=== PATIENT | female | born 1990 | race American Indian/Alaskan Native ===

== ENCOUNTER 2017-04-26 11:35 | Emergency (ER) | payer BC ==
[2017-04-26 11:46] VITALS: BMI 37.4
[2017-04-26 11:47] VITALS: BP 110/62; PULSE 104; RESP 19; TEMP 98.7; O2SAT 99
--- NOTE | 2017-04-26 12:25 | ED PDOC ---
Lower Extremity Pain/Injury Time Seen by Provider: 04/26/17 12:13 Chief Complaint (Nursing): Lower Extremity Problem/Injury Chief Complaint (Provider): fall type injury History Per: Patient History/Exam Limitations: no limitations Onset/Duration Of Symptoms: Hrs Current Symptoms Are (Timing): Still Present Severity: Moderate Additional History Per: Patient Additional Complaint(s): The pt is a 27yo female, presents to ED for evaluation of right hip, knee and ankle injury s/p falling down the stairs last night. Pt denies any head injury or loss of consciousness. Also denies any neck or back pain. Pt denies any significant PMHx, offers no additional medical complaints. - Hip Description Of Injury: Fell - Knee Description Of Injury: Fell - Ankle/Foot Description Of Injury: Fell Past Medical History Reviewed: Historical Data, Nursing Documentation, Vital Signs Vital Signs: Last Vital Signs Temp 98.7 F 04/26/17 11:47 Pulse 104 H 04/26/17 11:47 Resp 19 04/26/17 11:47 BP 110/62 04/26/17 11:47 Pulse Ox 99 04/26/17 11:47 - Medical History PMH: No Chronic Diseases, Migraine - Surgical History Surgical History: No Surg Hx - Family History Family History: States: Unknown Family Hx - Social History Current smoker - smoking cessation education provided: No Alcohol: None Drugs: Denies - Home Medications Home Medications: Ambulatory Orders Medication Instructions Recorded Cyclobenzaprine [Cyclobenzaprine 10 mg PO BID #14 tab 05/15/15 HCl] Ibuprofen [Motrin] 600 mg PO Q8 #30 tab 05/15/15 Ondansetron ODT [Zofran ODT] 8 mg PO Q8 PRN #10 odt 01/11/16 Naproxen [Naprosyn] 500 mg PO Q12H #20 tab 04/26/17 - Allergies Allergies/Adverse Reactions: Allergies Allergy/AdvReac Type Severity Reaction Status Date / Time No Known Allergies Allergy Verified 04/26/17 11:57 Review of Systems ROS Statement: Except As Marked, All Systems Reviewed And Found Negative Musculoskeletal: Positive for: Leg Pain (rt), Foot Pain (rt) Physical Exam - Reviewed Nursing Documentation Reviewed: Yes Vital Signs Reviewed: Yes - Physical Exam Appears: Positive for: Well, Non-toxic, No Acute Distress Head Exam: Positive for: ATRAUMATIC, NORMAL INSPECTION, NORMOCEPHALIC Skin: Positive for: Normal Color, Warm, DRY Eye Exam: Positive for: Normal appearance Cardiovascular/Chest: Positive for: Regular Rate, Rhythm Respiratory: Negative for: Respiratory Distress Back: Positive for: Normal Inspection Extremity: Positive for: Tenderness (right hip tenderness, limited ROM due to pain; right knee tenderness posteriorly, ROM limited due to pain; right ankle no swelling or deformity), Capillary Refill (<2 seconds; distal neurovascular senses intact). Negative for: Deformity, Swelling Neurologic/Psych: Positive for: Alert, Oriented - ECG O2 Sat by Pulse Oximetry: 99 (RA) Pulse Ox Interpretation: Normal Medical Decision Making Medical Decision Making: Time: 1220 Impression: Right hip, knee, ankle injury s/p fall Plan: -- XR Right Ankle -- XR Right Knee -- XR Right Hip -- Toradol 60 mg IM Reassess Scribe Attestation: Documented by Deanne Mckeon acting as a scribe for Roque Stoner MD. Provider Attestation: All medical record entries made by the Scribe were at my direction and personally dictated by me. I have reviewed the chart and agree that the record accurately reflects my personal performance of the history, physical exam, medical decision making, and the department course for this patient. I have also personally directed, reviewed, and agree with the discharge instructions and disposition. Disposition - Clinical Impression Clinical Impression: Knee sprain, Ankle sprain, Contusion - Patient ED Disposition Is Patient to be Admitted: No Counseled Patient/Family Regarding: Studies Performed, Diagnosis, Need For Followup, Rx Given - Disposition Referrals: Kenyatta Frazier [Primary Care Provider] - Josh Giraldo MD [Medical Doctor] - Disposition: Routine/Home Disposition Time: 14:33 Condition: FAIR Prescriptions: Naproxen [Naprosyn] 500 mg PO Q12H #20 tab Instructions: Knee Immobilizer (ED), Knee Sprain (ED), Ankle Sprain (ED), Contusion in Adults (ED)
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
== END 2017-04-26 15:31 | disposition home or self-care (01) ==
LOC: H.ER 11:35
DX: S83.91XA Sprain of unspecified site of right knee, initial encounter (principal); S93.401A Sprain of unspecified ligament of right ankle, initial encounter; M25.551 Pain in right hip; W10.9XXA Fall (on) (from) unspecified stairs and steps, initial encounter; Y92.89 Other specified places as the place of occurrence of the external cause
CPT/HCPCS: 29530; 29540; 73502; 73562; 73600; 81025; 96372; 99285; J1885

== ENCOUNTER 2017-06-15 12:22 | Emergency (ER) | payer BC ==
[2017-06-15 12:22] VITALS: BMI 37.4
[2017-06-15 12:28] VITALS: BP 109/76; RESP 16; TEMP 97.8; O2SAT 99
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
[2017-06-15 15:50] VITALS: PULSE 72
== END 2017-06-15 15:48 | disposition home or self-care (01) ==
LOC: H.ER 12:22
DX: S00.83XA Contusion of other part of head, initial encounter (principal); S16.1XXA Strain of muscle, fascia and tendon at neck level, initial encounter; Y04.0XXA Assault by unarmed brawl or fight, initial encounter; Y92.89 Other specified places as the place of occurrence of the external cause

== ENCOUNTER 2018-01-06 11:46 | Emergency (ER) | payer BC, MEDICAID ==
[2018-01-06 11:46] VITALS: BMI 37.4
[2018-01-06 11:55] VITALS: BP 127/69; PULSE 81; O2SAT 100
[2018-01-06 12:09] VITALS: RESP 20; TEMP 98.2
--- NOTE | 2018-01-06 12:40 | ED PDOC ---
HPI: Eye Injury/Pain Time Seen by Provider: 01/06/18 12:30 Chief Complaint (Nursing): Eye Problem Chief Complaint (Provider): Eye Problem History Per: Patient History/Exam Limitations: no limitations Onset/Duration Of Symptoms: Days (x3) Current Symptoms Are (Timing): Still Present Injury To Eye?: No Wears Contact Lens?: Yes Associated Symptoms: Pain, Discharge From Eye (tearing from eye) Additional Complaint(s): 27 year old female presents to ED with complaints of left eye pain x3 days. Patient describes the pain as a "stinging" sensation and confirms she wears contacts. Patient notes resolved erythema after putting in Clear Eye drops. (-) visual changes. Notes she changed her contacts 2 days ago. PCP: Wilver Payne Past Medical History Reviewed: Historical Data, Nursing Documentation, Vital Signs Vital Signs: Last Vital Signs Temp 98.2 F 01/06/18 12:05 Pulse 81 01/06/18 12:05 Resp 20 01/06/18 12:05 BP 127/69 01/06/18 12:05 Pulse Ox 100 01/06/18 12:05 - Medical History PMH: Migraine - Family History Family History: States: Unknown Family Hx - Social History Alcohol: None Drugs: Denies - Home Medications Home Medications: Ambulatory Orders Medication Instructions Recorded Cyclobenzaprine [Cyclobenzaprine 10 mg PO BID #14 tab 05/15/15 HCl] Ibuprofen [Motrin] 600 mg PO Q8 #30 tab 05/15/15 Ondansetron ODT [Zofran ODT] 8 mg PO Q8 PRN #10 odt 01/11/16 Naproxen [Naprosyn] 500 mg PO Q12H #20 tab 04/26/17 Ofloxacin Ophth 0.3% [Ocuflox 4 unit OS Q6 5 Days #1 bottle 01/06/18 Ophth 0.3%] - Allergies Allergies/Adverse Reactions: Allergies Allergy/AdvReac Type Severity Reaction Status Date / Time No Known Allergies Allergy Verified 01/06/18 12:05 Review of Systems ROS Statement: Except As Marked, All Systems Reviewed And Found Negative Constitutional: Positive for: Sweats (pain to left eye) Eyes: Positive for: Pain, Redness (resolved in left eye). Negative for: Vision Change Physical Exam - Reviewed Nursing Documentation Reviewed: Yes Vital Signs Reviewed: Yes - Physical Exam Appears: Positive for: Non-toxic, No Acute Distress Eye Exam: Positive for: EOMI, PERRL, Conjunctival injection (very mild injection ), Other (Fluorescein stain shows: lens is cloudy. Uptake in a circumferential manner around iris. No abrasions.) - ECG O2 Sat by Pulse Oximetry: 100 (RA) Pulse Ox Interpretation: Normal Medical Decision Making Medical Decision Makin Initial impression: bacterial conjunctivitis, most probably Pseudomonas - related to contact lens wearer Will prescribe Oxfloxacin drops for 5 days. Scribe Attestation: Documented by Yanira Shrestha, acting as a scribe for Rodney Beckford PA-C. Provider Scribe Attestation: All medical record entries made by the Scribe were at my direction and personally dictated by me. I have reviewed the chart and agree that the record accurately reflects my personal performance of the history, physical exam, medical decision making, and the department course for this patient. I have also personally directed, reviewed, and agree with the discharge instructions and disposition. Disposition - Clinical Impression Clinical Impression: Eye infection, Conjunctivitis, Bacterial conjunctivitis of left eye - Disposition Referrals: [facility] [Outside] Additional Instructions: take medication as prescribed dispose of old contacts do not wear contacts for 4-5 days Prescriptions: Ofloxacin Ophth 0.3% [Ocuflox Ophth 0.3%] 4 unit OS Q6 5 Days #1 bottle Instructions: Conjunctivitis ([place]) (DC) Forms: [employer] (German)
== END 2018-01-06 13:07 | disposition home or self-care (01) ==
LOC: H.ER 11:46
DX: H10.89 Other conjunctivitis (principal); H44.002 Unspecified purulent endophthalmitis, left eye